=== PATIENT | female | born 1955 | race Caucasian/White ===

== ENCOUNTER → 2023-07-30 | Emergency (ER) | payer OTHER ==
[~2023-07-30] MED LIST: LABETALOL 20 MG/4ML SYRINGE IV ONE
--- OUTSIDE RECORDS SUMMARY | 2023-07-30 14:26 | XMS REPORT | Continuity of Care Document ---
Author Name Unknown Address [address] [facility] [address]. [address] [place] [address] [facility] Address [address] [facility]. [address] [place] [address] Care Team Providers Care Aesthetician Name Role Phone KIM SHAW Primary Care Physician Unav ailable Kim Shaw Attending Clinician Unavailable Ishaan Lucero NP Attending Clinician [phone] Kim Shaw Admitting Clinician Unavailable ISHAAN LUCERO Admitting Clinician Unavailab le Payers Payer Name Policy Type Policy Number Effective Date Expiration Date Source [employer] Senior Supplemental 53 [id number] [facility] Problems Condition Name Condition Details Condition Category Status Onset Date Resolution Date Last Treatment Date Treating Clinician Comments Source [id number] Trigger ring finger of right hand Problem Active [facility] [id number] Pain, joint, shoulder, left Problem Active [facility] [id number] Impingemen t syndrome of left shoulder Problem Active [facility] [id number] Pain, joint, hand, right Problem Active [facility] Allergies, Adverse Reactions, Alerts Allergy Name Allergy Type Status Severity Reaction(s) Onset Date Inactive Date Treating Clinician Comments Source NO KNOWN ALLERGIE S Drug Class Active [facility] azithrom ycin azithrom ycin Active Unknown [facility] Social History Social Habit Start Date Stop Date Quantity Comments Source History of Tobacco Use [facility] Gender identity [facility] Sexual orientation U [facility] Sex Assigned At 1955 00:00:00 1955 00:00:00 [facility] Smoking Status Start Date Stop Date Source Tobacco smoking consumption unknown [facility] Never Smoker [facility] Medications Ordered Medication Name Filled Medication Name Start Date Stop Date Current Medication? Ordering Clinician Indication Dosage Frequency Signature (SIG) Comments Components Source labetaloL (NORMODYNE) injection 5 mg 12-15 02:45: 00 12-15 02:05 :00 No 5mg 5 mg, Slow IV Push, ONCE, 1 dose, On Wed12/14/22 at 2145, Routine [facility] NaCl 0.9% (NS) bolus infusion 1,000 mL 12-15 02:30: 00 12-15 03:10 :00 No 1000mL at 999 mL/hr, 1,000 mL, IV Infusion, ONCE, 1 dose, On Wed12/14/22 at 2130, EBEN [facility] cefTRIAXone (ROCEPHIN) 1,000 mg in NaCl 0.9% (NS) 100 mL MINI-BAG 12-15 02:00: 00 12-15 03:10 :00 No 1000mg 1,000 mg, IV Piggyback, ONCE, 1 dose, On Wed12/14/22 at 2100, Administer over 30 Minutes, 100 mL
Reas on for Anti-Infec tive: Documented Infection< br>Documen jesus Infection Site: Skin / Soft Tissue
Duration of Therapy: Other (see Comments) [facility] iopamidol (ISOVUE 370-500 mL) injection 65 mL 12-15 00:50: 00 12-15 00:50 :00 No [id number] 65mL 65 mL, Intravenou s, ONCE, 1 dose, On Wed12/14/22 at 2015, Routine [facility] acetaminoph en (TYLENOL) tablet 1,000 mg 12-14 23:30: 00 12-14 23:51 :00 No 1000mg 1,000 mg, Oral, ONCE, 1 dose, On Wed12/14/22 at 1830, EBEN [facility] cephALEXin 500 mg capsule 12-14 00:00: 00 12-22 04:59 :00 No [id number] 500mg Take 1 capsule by mouth 4 (four) times daily for 7 days. [facility] sulfamethox azole-trime thoprim 800-160 mg per tablet 12-14 00:00: 00 12-22 04:59 :00 No [id number] 1{tbl} Take 1 tablet by mouth every 12 (twelve) hours for 7 days. [facility] sulfamethox azole-trime thoprim 800-160 mg per tablet 12-14 00:00: 00 12-14 00:00 :00 No [id number] 1{tbl} Take 1 tablet by mouth every 12 (twelve) hours for 7 days. [facility] cephALEXin 500 mg capsule 12-14 00:00: 00 12-14 00:00 :00 No [id number] 500mg Take 1 capsule by mouth 4 (four) times daily for 7 days. [facility] Lidocaine Lidocaine 10-07 00:00: 00 No .5mL [facility] Lidocaine Lidocaine 10-07 00:00: 00 No .5mL [facility] Kenalog (Triamcinol one) Kenalog (Triamcinol one) 10-07 00:00: 00 No .5mL [facility] Kenalog (Triamcinol one) Kenalog (Triamcinol one) 10-07 00:00: 00 No .5mL [facility] Bupivicaine Edgar Bupivicaine Edgar 12-24 00:00: 00 No 2.5mg [facility] Bupivicaine Edgar Bupivicaine Edgar 12-24 00:00: 00 No 2.5mg [facility] Kenalog (Triamcinol one) Kenalog (Triamcinol one) 8- 00:00: 00 No 40mg [facility] Kenalog (Triamcinol one) Kenalog (Triamcinol one) 8- 00:00: 00 No 40mg [facility] Bupivicaine Edgar Bupivicaine Edgar 12-24 00:00: 00 No 2.5mg [facility] Bupivicaine Edgar Bupivicaine Edgar 12-24 00:00: 00 No 2.5mg [facility] Kenalog (Triamcinol one) Kenalog (Triamcinol one) 12-24 00:00: 00 No 40mg [facility] Kenalog (Triamcinol one) Kenalog (Triamcinol one) 12-24 00:00: 00 No 40mg [facility] Depo Medrol (40mg) Depo Medrol (40mg) 2017-05 00:00: 00 No 40mg [facility] Bupivicaine Edgar Bupivicaine Edgar 2017-05 2 00:00: 00 No 2.5ug [facility] Depo Medrol (40mg) Depo Medrol (40mg) 2017-05 00:00: 00 No 40mg [facility] Bupivicaine Edgar Bupivicaine Edgar 2017-05 00:00: 00 No 2.5ug [facility] Depo Medrol (40mg) Depo Medrol (40mg) 2017-05 0-12 00:00: 00 No 40mg [facility] Bupivicaine Edgar Bupivicaine Edgar 2017-05 00:00: 00 No 2.5mg [facility] Depo Medrol (40mg) Depo Medrol (40mg) 2017-05 00:00: [address] [facility] Bupivicaine Edgar Bupivicaine Edgar 2017-05 00:00: 00 No 2.5mg [facility] Carvedilol Carvedilol No Carvedilol Glimepiride Glimepiride No Gl imepirid e Pravastatin Sodium Pravastatin Sodium No Pravastati n Sodium Montelukast Sodium Montelukast Sodium No Montelukas t Sodium Levothyroxi ne Sodium Levothyroxi ne Sodium No Levothyrox ine Sodium losartan losartan No losartan Ozempic Ozempic No Ozempic metFORMIN HCl metFORMIN HCl No metFORMIN HCl NovoLIN N NovoLIN N No NovoLIN N Montelukast Sodium Montelukast Sodium No Montelukas t Sodium Valsartan Valsartan No Valsartan Glimepiride Glimepiride No Gl imepirid e Carvedilol Carvedilol No Carvedilol Pravastatin Sodium Pravastatin Sodium No Pravastati n Sodium Glimepiride Glimepiride Yes Srinivasa Pereyra not defined [facility] losartan losartan Yes Srinivasa Pereyra not defined [facility] Levothyroxi ne Sodium Levothyroxi ne Sodium Yes Srinivasa Pereyra not defined [facility] Montelukast Sodium Montelukast Sodium Yes Srinivasa Pereyra not defined [facility] Metformin HCl Metformin HCl Yes Srinivasa Pereyra not defined [facility] Pravastatin Sodium Pravastatin Sodium Yes Srinivasa Pereyra not defined [facility] Ozempic Ozempic Yes Srinivasa Pereyra not defined [facility] Levothyroxi ne Sodium Levothyroxi ne Sodium No Levothyrox ine Sodium Ozempic Ozempic No Ozempic losartan losartan No losartan metFORMIN HCl metFORMIN HCl No metFORMIN HCl NovoLIN N NovoLIN N No NovoLIN N Vital Signs Vital Name Observation Time Observation Value Comments Gunjan marie Systolic blood pressure 2022-12-15 03:00:00 162 mm[Hg] [facility] Diastolic blood pressure 2022-12-15 03:00:00 71 mm[Hg] [facility] Heart rate 2022-12-15 03:00:00 79 /min [facility] Body temperature 2022-12-15 03:00:00 36.56 Roberta [facility] Respiratory rate 2022-12-15 03:00:00 20 /min [facility] Oxygen saturation in Arterial blood by Pulse oximetry 2022-12-15 03:00:00 92 /min [facility] Body weight 2022-12-14 23:21:00 92.987 kg [facility] height 2022-10-07 14:15:00 66 [in_i] [facility] weight 2022-10-07 14:15:00 210 [lb_av] [facility] temperature 2022-10-07 14:15:00 97.8 [degF] [facility] bmi 2022-10-07 14:15:00 33.89 kg/m2 [facility] blood pressure systolic 2022-10-07 14:15:00 130 mm[Hg] [facility] blood pressure diastolic 2022-10-07 14:15:00 84 mm[Hg] [facility] height 2021-12-24 14:30:00 66 [in_i] [facility] weight 2021-12-24 14:30:00 210.8 [lb_av] Co m[facility] bmi 2021-12-24 14:30:00 34.02 kg/m2 [facility] blood pressure systolic 2021-12-24 14:30:00 132 mm[Hg] [facility] blood pressure diastolic 2021-12-24 14:30:00 88 mm[Hg] [facility] Procedures Procedure Date / Time Performed Performing Clinicia n Source CT PELVIS W CONTRAST 2022-12-15 00:59:00 Phyllis Lucero [facility] URINALYSIS 2022-12-15 00:47:00 Ishaan Lucero [facility] LACTIC ACID WHOLE BLOOD 2022-12-14 23:46:00 Ishaan Lucero [facility] COMP. METABOLIC PANEL ([id number]) 2022-12-14 23:44:00 Ishaan Lucero [facility] CBC WITH DIFF 2022-12-14 23:44:00 Ishaan Lucero [facility] RAPID INFLUENZA A/B 2022-12-14 23:44:00 Mary Lucero [facility] COVID-19 (ID NOW RAPID TESTING) 2022-12-14 23:44:00 Ishaan Lucero [facility] NOTICE OF PRIVACY PRACTICES 2022-12-14 23:17:48 Doctor Unassigned, [place] [facility] CONSENT/REFUSAL FOR DIAGNOSIS AND TREATMENT 2022-12-14 23:17:03 Doctor Unassigned, [place] [facility] Encounters Start Date/Time End Date/Time Encounter Type Admission Type Attending [facility] Care Facility Care Department Encounter ID Source 2021-12-25 08:30:01 Outpatient Kim Shaw [facility] [id number] [facility] 2021-12-24 14:37:00 Outpatient Kim Shaw [facility] [id number] 2021-12-23 09:53:00 Outpatient [facility] [id number] [facility] 2021-12-22 12:06:00 Outpatient [facility] [id number] [facility] 2022-12-14 18:23:00 2022-12-14 22:25:00 Emergency Ishaan Lucero [facility] [id number] [facility] 2022-12-14 18:23:00 2022-12-14 22:25:00 Emergency X ISHAAN LUCERO [facility] ERT [id number] [facility] 2022-10-07 00:00:00 2022-10-07 00:00:00 OFFICE VISIT ESTAB PT LEVEL 3 STLMLC STLMLC [id number] [facility] 2021-12-24 00:00:00 2021-12-24 00:00:00 OFFICE VISIT NEW PT LEVEL 3 STLMLC STLC [id number] [facility] 2018-03-04 09:00:00 2018-03-04 09:00:00 Outpatient [facility] [id number] [facility] Results Test Description Test Time Test Comments Results Result Co mments Source [facility] Notes Date/Time Note Provider Source 2022-12-14 22:24:15 [id number]:24:15Formatt ing of this note might be different from the original.Discharged home ambulatory. Home instructions and prescriptions flower picker instructed. [id number] department [id number]:25:05[facility] [id number] lable for patient [id number] Rosario RN[address] WmpkNnweehdwiKyvypqlrsVBRZ5458 [id number] 14-12-23T22:25:[id number] 0.1.72.3.15|[id number] Spenser Rosario RN [facility] 2022-12-14 18:20:22 [id number] QIefgfP4uifjkP22h/bmP9UcBGoO9c [id number]:20:22Formatt ing of this note might be different from the original.Pt c/o an abscess like area on her right buttock and generalized fatigue and headache. Pt reports she has taken her BP meds today.Pt states she is allergic to an unknown antibiotic that "starts with a C". 55501-9Uavdepkqy department Triage [id number]:23:13Emerg ency department Triage [id number] .[id number] lable for patient [address] WceeLagtdquyqZaiozchdnURLD6780 [id number] 14-12-23T18:23:[id number] 0.1.72.3.15|[id number] [facility]
[2023-07-30 15:09] LABS: Absolute Basophils 0.1 K/uL (0-0.5); Absolute Lymphocytes (CBC) 2.3 K/uL (0.7-4.9); Basophils % 1.1 % (0-1.3); Lymphocytes % 35.7 % (15.3-44.8); MCV 82.7 fL (80-100); MPV 7.3 fL (7.6-11.3); Platelets 281 thou/uL (152-406); RBC Red Blood Cell Count 4.47 M/uL (3.86-4.86)
[2023-07-30 15:28] LABS: Albumin 3.6 g/dL (3.4-5.0); Albumin/Globulin Ratio 0.9 (1.1-1.8); Anion Gap 7.9 mEq/L (5.0-15.0); Bilirubin Direct 0.1 mg/dL (0-0.2); Bilirubin Indirect, Calculated 0.4 mg/dL (0.2-0.8); Bilirubin Total 0.5 mg/dL (0.2-1.0); Potassium 3.9 mEq/L (3.5-5.1); Protein, Total 7.5 g/dL (6.4-8.2)
[2023-07-30 15:29] LABS: Magnesium 1.9 mg/dL (1.6-2.4); Troponin High Sensitivity 54.7 pg/mL (<58.9)
--- NOTE | 2023-07-30 15:57 | RAD REPORT ---
EXAM DESCRIPTION: RAD - Chest Single View - 07/30/2023 3:41 pm CLINICAL HISTORY: CHEST PAIN COMPARISON: ABDOMEN ACUTE SERIES dated 06/04/2013 FINDINGS: Lines: None. Lungs: No evidence of edema or pneumonia. Pleural: No significant pleural effusions or pneumothorax. Cardiac: The heart size is within normal limits. Mediastinum: Within normal limits. Bones: No acute fractures. Other: None IMPRESSION: No acute cardiopulmonary disease.
--- NOTE | 2023-07-30 16:30 | ER ---
Nurse's Notes [facility] Name: Abena Villa Age: 67 yrs Sex: Female : 1955 Arrival Date: 07/30/2023 Time: 14:22 Bed 7 Private MD: Diagnosis: Essential (primary) hypertension Presentation: 07/29 14:32 Chief complaint: Patient states: "I was at the doctor's office and they said to come aa5 here because my blood pressure was too high". Pt reports she's been out of her home antihypertensive for approximately 1 week. Only reports "mild headache". Coronavirus screen: At this time, the client does not indicate any symptoms associated with coronavirus-19. Ebola Screen: Patient denies travel to an Ebola-affected area in the 21 days before illness onset. Initial Sepsis Screen: Does the patient meet any 2 criteria? No. Patient's initial sepsis screen is negative. Does the patient have a suspected source of infection? No. Patient's initial sepsis screen is negative. Risk Assessment: Do you want to hurt yourself or someone else? Patient reports no desire to harm self or others. Onset of symptoms was July 30, 2023. 14:32 Method Of Arrival: Ambulatory aa5 14:32 Acuity: JLUIS 2 aa5 Historical: - Allergies: 14:34 unknown antibiotic; aa5 - PMHx: 14:34 Hypertensive disorder; Diabetes mellitus; aa5 14:35 Hypothyroidism; aa5 - PSHx: 14:34 ear sx; tubal ligation; cyst removed from arm; aa5 - Immunization history:: Adult Immunizations unknown. - Social history:: Smoking status: Patient denies any tobacco usage or history of. Screenin:42 [facility] ED Fall Risk Assessment (Adult) History of falling in the last 3 months, mb9 including since admission No falls in past 3 months (0 pts) Confusion or Disorientation No (0 pts) Intoxicated or Sedated No (0 pts) Impaired Gait No (0 pts) Mobility Assist Device Used No (0 pt) Altered Elimination No (0 pt) Score/Fall Risk Level 0 - 2 = Low Risk Oriented to surroundings, Maintained a safe environment, Educated pt \\T\\ family on fall prevention, incl call for assistance when getting out of bed. Abuse screen: Denies threats or abuse. Nutritional screening: No deficits noted. Tuberculosis screening: No symptoms or risk factors identified. Assessment: 15:04 General: Appears in no apparent distress. Behavior is calm, cooperative. Pain: mb9 Complains of pain in head Pain does not radiate. Pain currently is 2 out of 10 on a pain scale. Quality of pain is described as aching, dull, Pain began 2-3 days ago. Is continuous. Neuro: Pro Agitation-Sedation Scale (RASS): 0 - Alert and Calm Level of Consciousness is awake, alert, obeys commands, Oriented to person, place, time, situation, Appropriate for age. Neuro: Reports headache. Cardiovascular: Heart tones S1 S2 present Patient's skin is warm and dry. Rhythm is regular. Respiratory: Airway is patent Respiratory effort is even, unlabored, Respiratory pattern is regular, symmetrical, Breath sounds are clear bilaterally. GI: Abdomen is round non-distended, Bowel sounds present X 4 quads. Abd is soft and non tender X 4 quads. : No signs and/or symptoms were reported regarding the genitourinary system. EENT: No signs and/or symptoms were reported regarding the EENT system. Derm: Skin is pink, warm \\T\\ dry. Musculoskeletal: Range of motion: intact in all extremities. 16:31 Reassessment: No changes from previously documented assessment. Patient and/or family mb9 updated on plan of care and expected duration. Pain level reassessed. Patient is alert, oriented x 3, equal unlabored respirations, skin warm/dry/pink. Vital Signs: 14:32 BP 224 / 108; Pulse 75; Resp 19 S; Temp 98(TE); Pulse Ox 98% on R/A; Weight 91.17 kg; aa5 Height 5 ft. 6 in. (R); 15:04 BP 225 / 98; Pulse 78; Resp 16; Pulse Ox 95% on R/A; mb9 15:41 BP 209 / 84; Pulse 69; Resp 18; Pulse Ox 100% on R/A; mb9 15:55 BP 190 / 80; Pulse 69; Resp 18; Pulse Ox 95% on R/A; mb9 16:32 BP 184 / 84; Pulse 73; Resp 18; Pulse Ox 97% on R/A; mb9 14:32 Body Mass Index 32.44 (91.17 kg, 167.64 cm) aa5 ED Course: 14:24 Patient arrived in ED. rg4 14:32 Arm band placed on. aa5 14:36 Triage completed. aa5 14:38 Abena Guy, RN is Primary Nurse. mb9 14:40 Placed in gown. Bed in low position. Call light in reach. Side rails up X 1. Client mb9 placed on continuous cardiac and pulse oximetry monitoring. NIBP monitoring applied. color television console monitor on. Door closed. Noise minimized. 14:44 Kody Ya DO is Attending Physician. ms3 14:48 No provider procedures requiring assistance completed. mb9 14:50 EKG done, by ED staff, reviewed by Kody Ya DO. mb9 15:03 Inserted saline lock: 20 gauge in right antecubital area, using aseptic technique. mb9 15:03 Basic Metabolic Panel Sent. mb9 15:03 CBC with Diff Sent. mb9 15:03 LFT's Sent. mb9 15:03 Magnesium Sent. mb9 15:03 Troponin HS Sent. mb9 15:05 Provided Education on: press call light when needing to use restroom. mb9 15:43 XRAY Chest (1 view) In Process Unspecified. EDMS 16:31 IV discontinued, intact, bleeding controlled, No redness/swelling at site. Pressure mb9 dressing applied. Administered Medications: 15:03 Drug: Labetalol IV 10 mg IV at calculated rate once Route: IV; Rate: calculated rate; mb9 Site: right antecubital; 16:38 Follow up: Response: No adverse reaction; IV Status: Completed infusion mb9 Medication: 14:42 VIS not applicable for this client. mb9 Outcome: 16:30 Discharge ordered by MD. ms3 16:32 Discharged to home ambulatory, mb9 16:32 Condition: stable 16:32 Discharge instructions given to patient, Instructed on discharge instructions, follow up and referral plans. Demonstrated understanding of instructions, follow-up care, 16:39 Patient left the ED. mb9 Signatures: Dispatcher [employer] EDMS Serena Obrien, RN RN Irlanda Santoyo rg4 Kody Ya DO DO ms3 Abena Guy, RN RN herminia9 Corrections: (The following items were deleted from the chart) 16:38 16:32 Pulse 73bpm; Resp 18bpm; Pulse Ox 97% RA; mb9 mb9
--- NOTE | 2023-07-30 16:30 | EDPHYS ---
Physician Documentation [facility] Name: Abena Villa Age: 67 yrs Sex: Female : 1955 Arrival Date: 07/30/2023 Time: 14:22 Bed 7 Private MD: ED Physician Kody Ya HPI: 07/29 15:33 This 67 yrs old Female presents to ER via Ambulatory with complaints of Blood Pressure ms3 Problem. 15:33 67-year-old female past medical history of hypertension, diabetes, hypothyroidism ms3 presents to the emergency department from her primary care physician's office for hypertension. Patient denies shortness of breath, nausea, vomiting, chest pain. Patient endorses mild headache that she rates a 1/10. Patient denies any alleviating or inciting factors. Patient notes she has been out of her blood pressure medication for 1 week.. Historical: - Allergies: 14:34 unknown antibiotic; aa5 - PMHx: 14:34 Hypertensive disorder; Diabetes mellitus; aa5 14:35 Hypothyroidism; aa5 - PSHx: 14:34 ear sx; tubal ligation; cyst removed from arm; aa5 - Immunization history:: Adult Immunizations unknown. - Social history:: Smoking status: Patient denies any tobacco usage or history of. ROS: 15:33 Constitutional: Negative for fever, and chills. Neck: Negative for injury, pain, and ms3 swelling, Cardiovascular: Negative for chest pain, and palpitations. Respiratory: Negative for shortness of breath, cough, wheezing, and pleuritic chest pain, Abdomen/GI: Negative for abdominal pain, nausea, vomiting, diarrhea, and constipation, MS/Extremity: Negative for injury and deformity, Skin: Negative for injury, rash, and discoloration, 15:33 Neuro: Positive for headache, Exam: 15:33 Constitutional: This is a well developed, well nourished patient who is awake, alert, ms3 and in no acute distress. Head/Face: Normocephalic, atraumatic. Neck: Trachea midline, no cervical lymphadenopathy. Supple, full range of motion without nuchal rigidity, or vertebral point tenderness. No Meningismus. Chest/axilla: Normal chest wall appearance and motion. Nontender with no deformity. Cardiovascular: Regular rate and rhythm with a normal S1 and S2. No gallops, murmurs, or rubs. Normal PMI, no JVD. No pulse deficits. Respiratory: Lungs have equal breath sounds bilaterally, clear to auscultation and percussion. No rales, rhonchi or wheezes noted. No increased work of breathing, no retractions or nasal flaring. Abdomen/GI: Soft, non-tender, with normal bowel sounds. No distension or tympany. No guarding or rebound. No evidence of tenderness throughout. Skin: Warm, dry with normal turgor. Normal color with no rashes, no lesions, and no evidence of cellulitis. MS/ Extremity: Pulses equal, no cyanosis. Neurovascular intact. Full, normal range of motion. 15:34 ECG was reviewed by the Attending Physician. ms3 Vital Signs: 14:32 BP 224 / 108; Pulse 75; Resp 19 S; Temp 98(TE); Pulse Ox 98% on R/A; Weight 91.17 kg; aa5 Height 5 ft. 6 in. (R); 15:04 BP 225 / 98; Pulse 78; Resp 16; Pulse Ox 95% on R/A; mb9 15:41 BP 209 / 84; Pulse 69; Resp 18; Pulse Ox 100% on R/A; mb9 15:55 BP 190 / 80; Pulse 69; Resp 18; Pulse Ox 95% on R/A; mb9 16:32 BP 184 / 84; Pulse 73; Resp 18; Pulse Ox 97% on R/A; mb9 14:32 Body Mass Index 32.44 (91.17 kg, 167.64 cm) aa5 MDM: 15:16 Patient medically screened. ms3 15:33 Differential Diagnosis Hypertensive urgency versus hypertensive emergency versus acute ms3 kidney injury. 16:30 Data reviewed: vital signs, nurses notes, lab test result(s), EKG, radiologic studies, ms3 and as a result, I will discharge patient. I considered the following discharge prescriptions or medication management in the emergency department Medications were administered in the Emergency Department. See MAR. Independent interpretation of the following test(s) in the Emergency Department EKG: See my EKG interpretation above X-Ray: My interpretation is CXR image reviewed by me does not reveal cardiomegaly, or enlarged mediastinum . Care significantly affected by the following chronic conditions: Diabetes, Hypertension. Counseling: I had a detailed discussion with the patient and/or guardian regarding the historical points, exam findings, and any diagnostic results supporting the discharge/admit diagnosis, lab results, radiology results, the need for outpatient follow up, to return to the emergency department if symptoms worsen or persist or if there are any questions or concerns that arise at home. Special discussion: I have referred the patient to see his PCP for further evaluation of high blood pressure. I discussed with the patient/guardian in detail that at this point there is no indication for admission to the hospital. It is understood, however, that if the symptoms persist or worsen the patient needs to return immediately for re-evaluation. ED course: Discussed labs, EKG, imaging with patient. Patient to follow-up with primary care physician 2 to 3 days. Patient understands and agrees to plan. All questions were answered. Return precautions discussed include worsening symptoms, or any other concerns. 07/29 14:49 Order name: Basic Metabolic Panel; Complete Time: 15:33 ms3 07/29 14:49 Order name: CBC with Diff; Complete Time: 15:33 ms3 07/29 14:49 Order name: LFT's; Complete Time: 15:33 ms3 07/29 14:49 Order name: Magnesium; Complete Time: 15:33 ms3 07/29 14:49 Order name: Troponin HS; Complete Time: 15:33 ms3 07/29 14:49 Order name: XRAY Chest (1 view); Complete Time: 15:59 ms3 07/29 14:49 Order name: EKG; Complete Time: 14:50 ms3 07/29 14:49 Order name: Cardiac monitoring; Complete Time: 15:03 ms3 07/29 14:49 Order name: EKG - Nurse/Tech; Complete Time: 15:03 ms3 07/29 14:49 Order name: IV Saline Lock; Complete Time: 15:03 ms3 07/29 14:49 Order name: Labs collected and sent; Complete Time: 15:03 ms3 07/29 14:49 Order name: O2 Per Protocol; Complete Time: 15:03 ms3 07/29 14:49 Order name: O2 Sat Monitoring; Complete Time: 15:03 ms3 EC:34 Rate is 77 beats/min. Rhythm is regular. QRS [place] is Normal. OR interval is normal. QRS ms3 interval is normal. Clinical impression: NSR w/ Non-specific ST/T Changes. Interpreted by me. Reviewed by me. Administered Medications: 15:03 Drug: Labetalol IV 10 mg IV at calculated rate once Route: IV; Rate: calculated rate; mb9 Site: right antecubital; 16:38 Follow up: Response: No adverse reaction; IV Status: Completed infusion mb9 Disposition Summary: 07/30/23 16:30 Discharge Ordered Notes: Location: Home ms3 Condition: Stable ms3 Diagnosis - Essential (primary) hypertension ms3 Followup: ms3 - With: Private Physician - When: 2 - 3 days - Reason: Recheck today's complaints Discharge Instructions: - Discharge Summary Sheet ms3 - Hypertension, Adult ms3 - DASH Eating Plan ms3 Forms: - Medication Reconciliation Form ms3 - Thank You Letter ms3 - Antibiotic Education ms3 - Prescription Opioid Use ms3 - Patient Portal Instructions ms3 - Leadership Thank You Letter ms3 Signatures: Dispatcher [employer] Serena Lawson RN RN aa5 Kody Ya DO DO ms3 Abena Guy RN RN mb9
[2023-07-30 17:04] VITALS: BP 184/84; TEMP 98; O2SAT 97
== END ==
LOC: ER 14:22
DX: I10 Essential (primary) hypertension (principal)
CPT/HCPCS: 36415; 71045; 80048; 80076; 83735; 84484; 85025; 96365; 96366; 99285

== ENCOUNTER 2023-09-24 12:25 | Emergency (ER) | payer OTHER ==
--- NOTE | 2023-09-24 15:08 | RAD REPORT ---
EXAM DESCRIPTION: RAD - Foot Left 3 View - 09/24/2023 2:55 pm CLINICAL HISTORY: PAIN COMPARISON: No comparisons FINDINGS/IMPRESSION: Obliquely oriented fracture of the fifth metatarsal distal metadiaphysis with a pproximately 2 millimeters of lateral displacement and slight foreshortening. No extension to the fif th MTP joint. Calcaneal spurs.
[2023-09-25 14:47] VITALS: BP 180/90; TEMP 97.3; O2SAT 97
== END 2023-09-24 15:34 | disposition home or self-care (01) ==
LOC: ER 12:25
DX: S92.352A Displaced fracture of fifth metatarsal bone, left foot, initial encounter for closed fracture (principal); W06.XXXA Fall from bed, initial encounter
CPT/HCPCS: 99283